=== PATIENT | female | born 1965 | race Caucasian/White ===

== ENCOUNTER 2017-10-19 09:34 | Outpatient (CLI) | payer OTHER | END 2017-10-19 09:35 | disposition home or self-care (01) | LOC: BICMAMMO 09:34 | PROVIDERS: ATTEND Internal Medicine | DX: M85.80 Other specified disorders of bone density and structure, unspecified site (principal); M85.89 Other specified disorders of bone density and structure, multiple sites | CPT/HCPCS: 77080 ==

== ENCOUNTER 2017-11-19 14:08 | Outpatient (CLI) | payer OTHER | END 2017-11-19 14:09 | disposition home or self-care (01) | LOC: BICMAMMO 14:08 | PROVIDERS: ATTEND Internal Medicine | DX: Z12.31 Encounter for screening mammogram for malignant neoplasm of breast (principal) | CPT/HCPCS: 77063; 77067 ==

== ENCOUNTER 2019-01-06 07:53 | Outpatient (CLI) | payer OTHER ==
--- NOTE | 2019-01-06 08:12 | MMO ---
Bilateral MAMMO Bilat Screen [facility]. CLINICAL HISTORY: Patient is 53 years old and is seen for screening. The patient has no family history of breast cancer. The patient has no personal history of cancer. VIEWS: The views performed were: bilateral craniocaudal with tomosynthesis and bilateral mediolateral oblique with tomosynthesis. FILMS COMPARED: The present examination has been compared to prior imaging studies performed at [facility] on 01/28/2015, 02/19/2016 and 11/19/2017. MAMMOGRAM FINDINGS: There are scattered fibroglandular densities. There are no suspicious masses, suspicious calcifications, or new areas of architectural distortion. IMPRESSION: THERE IS NO MAMMOGRAPHIC EVIDENCE OF MALIGNANCY. A ROUTINE FOLLOW-UP MAMMOGRAM IN 1 YEAR IS RECOMMENDED. THE RESULTS OF THIS EXAM WERE SENT TO THE PATIENT. ACR BI-RADS Category 1 - Negative MAMMOGRAPHY NOTE: 1. A negative mammogram report should not delay a biopsy if a dominant of clinically suspicious mass is present. 2. Approximately 10% to 15% of breast cancers are not detected by mammography. 3. Adenosis and dense breasts may obscure an underlying neoplasm. Reported by: GENE MOISE MD Electonically Signed: [id number]
== END 2019-01-06 07:54 | disposition home or self-care (01) ==
LOC: BICMAMMO 07:53
PROVIDERS: ATTEND Internal Medicine
DX: Z12.31 Encounter for screening mammogram for malignant neoplasm of breast (principal)
CPT/HCPCS: 77063; 77067

== ENCOUNTER 2019-06-23 12:16 | Outpatient (CLI) | payer OTHER ==
--- NOTE | 2019-06-23 12:58 | RAD ---
THREE VIEWS LEFT WRIST: HISTORY: Discoloration and pain left wrist that started 1 day ago. The patient denies trauma. FINDINGS: There is prominent osteoarthritis involving the 1st carpometacarpal joint with the base of the thumb subluxed laterally in relation to the carpal bone. There is a corticated osseous density distal to t he ulnar styloid process which may represent a remote avulsion injury versus an accessory center of o ssification. No acute fracture or dislocation is seen. There is mild ulnar minus variance present. IMPRESSION: 1. Prominent osteoarthritis involving the 1st carpometacarpal joint. 2. Slight ulnar minus configuration. 3. No acute osseous abnormality. POS: [facility]
== END 2019-06-23 12:17 | disposition home or self-care (01) ==
LOC: BICRAD 12:16
PROVIDERS: ATTEND Internal Medicine
DX: M25.532 Pain in left wrist (principal); M18.12 Unilateral primary osteoarthritis of first carpometacarpal joint, left hand; M89.8X3 Other specified disorders of bone, forearm

== ENCOUNTER 2019-12-22 11:30 | Outpatient (CLI) | payer OTHER ==
--- NOTE | 2019-12-22 11:49 | ULT ---
EXAM: US Neck Soft Tissue DATE: 12/22/2019 12:00 AM INDICATION: Palpable abnormality of the left neck; concern for soft tissue mass COMPARISON: None. FINDING: Within the palpable region of interest in the left neck, no suspicious mass is evident. The re is a nonpathologically enlarged lymph node measuring 0.9 x 0.4 x 1.5 cm. No additional abnormality is evident. IMPRESSION:No suspicious sonographic abnormality in the palpable region of interest. There is a nonpa thologically enlarged lymph node in this location. If there remains clinical concern for soft tissue mass, CT of the soft tissues utilizing IV contrast is recommended for additional interrogation .
== END 2019-12-22 11:31 | disposition home or self-care (01) ==
LOC: BICULT 11:30
PROVIDERS: ATTEND Internal Medicine
DX: R59.0 Localized enlarged lymph nodes (principal)
CPT/HCPCS: 76536

== ENCOUNTER 2022-06-24 08:06 | Outpatient (CLI) | payer BC | END 2022-06-24 08:07 | disposition home or self-care (01) | LOC: BICRAD 08:06 | PROVIDERS: ATTEND Thoracic Surgery (Cardiothoracic Vascular Surgery) | DX: S22.42XD Multiple fractures of ribs, left side, subsequent encounter for fracture with routine healing (principal); S29.9XXD Unspecified injury of thorax, subsequent encounter | CPT/HCPCS: 71046 ==

== ENCOUNTER 2023-03-19 08:28 | Outpatient (CLI) | payer BC | END 2023-03-19 08:29 | disposition home or self-care (01) | LOC: BICMRI 08:28 | PROVIDERS: ATTEND Orthopaedic Surgery | DX: M70.61 Trochanteric bursitis, right hip (principal); S73.191A Other sprain of right hip, initial encounter; M67.853 Other specified disorders of tendon, right hip ==

== ENCOUNTER 2024-01-07 14:46 | Outpatient (CLI) | payer BC | END 2024-01-07 14:47 | disposition home or self-care (01) | LOC: BICMAMMO 14:46 | PROVIDERS: ATTEND Internal Medicine | DX: Z12.31 Encounter for screening mammogram for malignant neoplasm of breast (principal); M85.89 Other specified disorders of bone density and structure, multiple sites | CPT/HCPCS: 77063; 77067; 77080 ==

== ENCOUNTER 2025-05-14 09:05 | Outpatient (CLI) | payer OTHER | END 2025-05-14 09:06 | disposition home or self-care (01) | LOC: MERGE 09:05 → BICRAD 09:05 | PROVIDERS: ATTEND Internal Medicine | DX: M25.552 Pain in left hip (principal) ==